=== PATIENT | female | born 1960 | race Caucasian/White ===

== ENCOUNTER 2023-07-30 16:57 | Emergency (ER) | payer OTHER, SELFPAY ==
--- NOTE | ~2023-07-30 | XR_ITS ---
XR hand LT min 3V Ordering provider: Ousmane Alvarado MD History: . fall, PT states pain to medial side of hand . Comparison: None. FINDINGS: BONES: No acute fracture or dislocation. JOINT SPACES: Well maintained. SOFT TISSUES: Unremarkable. IMPRESSION: No acute osseous abnormality left hand. Reviewed, dictated and finalized at location A.
[2023-07-30 17:00] VITALS: BP 143/76; PULSE 66; RESP 18; TEMP 36.4; O2SAT 98
--- NOTE | 2023-07-30 17:56 | ED.GENADULT ---
HPI - General Adult General Chief complaint: Extremity Injury, Upper Stated complaint: fall - hand injury Time Seen by Provider: 07/30/23 17:48 History of Present Illness HPI narrative: [age] old female present to the emergency department for evaluation for left hand pain after having a ground level fall on Sunday. Patient has had worsening left hand swelling since the injury. Patient is not on blood thinners. Patient did strike her head but denies any loss of consciousness. Patient denies any lightheaded dizziness or head pain. Related Data Allergies Allergy/AdvReac Type Severity Reaction Status Date / Time No Known Allergies Allergy Verified 07/30/23 17:06 Review of Systems Review of Systems: All systems reviewed & are unremarkable except as noted in HPI and below Exam Narrative: APPEARANCE: Well appearing, no pain, no distress, well-nourished. HEAD: normocephalic, atraumatic. EYES: PERRLA/EOMI, conjunctivae clear. NOSE: Normal no drainage EARS:TMS clear with good light reflex. THROAT: Pharynx clear, no exudate. NECK: Supple. No adenopathy, no masses. RESPIRATORY: Airway patent, respirations nonlabored. Clear to auscultation bilaterally, no rales, rhonchi, wheezing. CARDIOVASCULAR: Regular rate and rhythm without murmurs rubs or gallops. ABDOMINAL: Soft, nontender, nondistended, normal bowel sounds MUSCULOSKELETAL: Contusion to left hand NEURO: Alert. Cranial nerves II through XII intact. Good gait. Good coordination SKIN: Warm, dry. Normal Color PSYCHIATRIC: Normal affect/mood. Course Vital Signs Vital signs: Vital Signs Temperature 97.6 F 07/30/23 17:00 Pulse Rate 66 07/30/23 17:00 Respiratory Rate 18 07/30/23 17:00 Blood Pressure 143/76 H 07/30/23 17:00 Pulse Oximetry 98 07/30/23 17:00 Temperature 97.6 F 07/30/23 17:00 Pulse Rate 66 07/30/23 17:00 Respiratory Rate 18 07/30/23 17:00 Blood Pressure 143/76 H 07/30/23 17:00 Pulse Oximetry 98 07/30/23 17:00 Medical Decision Making [facility] Narrative Medical decision making narrative: [age] old female presents emergency department for evaluation of left hand pain and contusion. Patient does have abrasions to the palmar surface of the left hand. Patient has an abrasion to the left forehead. X-ray was negative for acute fracture for the handed patient declined any imaging of the brain. Patient was encouraged of close follow-up with her primary care physician. Differential Diagnosis Differential Diagnosis: Hand contusion, hand fracture, hematoma Vital Signs Vital Signs: Vital Signs Temperature 97.6 F 07/30/23 17:00 Pulse Rate 66 07/30/23 17:00 Respiratory Rate 18 07/30/23 17:00 Blood Pressure 143/76 H 07/30/23 17:00 Pulse Oximetry 98 07/30/23 17:00 Temperature 97.6 F 07/30/23 17:00 Pulse Rate 66 07/30/23 17:00 Respiratory Rate 18 07/30/23 17:00 Blood Pressure 143/76 H 07/30/23 17:00 Pulse Oximetry 98 07/30/23 17:00 Imaging Data Radiologist's impression: Impressions Hand X-Ray 07/30/23 17:24 IMPRESSION: No acute osseous abnormality left hand. Discharge Plan Discharge Clinical Impression: Contusion of hand Patient Disposition: Home, Self-Care Condition: Stable Instructions: Antibiotic Form, Contusion in Adults (ED) Additional Instructions: Continue Tylenol and ibuprofen for pain control, keep the hand elevated, ice therapy as needed. Have close follow-up with your primary care physician. If you have any worsening symptoms please call or return to the emergency department Follow-up/Referrals: Boy Diaz MD [Primary Care Provider] -
== END 2023-07-30 18:23 | disposition home or self-care (01) ==
LOC: ANHED 18:10
PROVIDERS: Emergency Provider Emergency Medicine; PCP Internal Medicine
DX: S60.222A Contusion of left hand, initial encounter (principal); W18.30XA Fall on same level, unspecified, initial encounter
CPT/HCPCS: 73130; 99283